=== PATIENT | male | born 1985 | race American Indian/Alaskan Native ===

== ENCOUNTER 2019-03-24 11:59 | Emergency (ER) | payer MEDICAID ==
[2019-03-24 12:29] VITALS: BP 128/78
--- NOTE | 2019-03-24 12:31 | Emergency Department Report ---
Chief Complaint: Medical Clearance Stated Complaint: NEED MEDS Time Seen by Provider: 03/24/19 12:25 - HPI History of Present Illness: pt states he needs a refill of his medications states his doctor is in [facility] haloperidol 50mg/ml vial, quantity 3 ML clonazepam 0.5 mg tab pt still has around 7 tablets of the clonazepam left states he does not have anymore haloperidol injections pt denies any SI/HI or hallucinations he denies any symptoms no tremors A&O x3 vitals are normal will give pt [facility] and other PCP options to follow up with pt also given list of community resources (+) marijuana occ drinker occ smoker MSE screening note: Focused history and physical exam performed. Due to findings the following was ordered: ED Disposition for MSE Clinical Impression: Medication refill Disposition: TO HOME OR SELFCARE Is pt being admited?: No Does the pt Need Aspirin: No Condition: Stable Instructions: Schizophrenia (ED) Additional Instructions: Please follow up with mental health or [facility]. Return to the emergency room if begin experiencing any symptoms. Referrals: [facility] - RAYMUNDO CASTANEDA MD [Primary Care Provider] - [facility] Time of Disposition: 12:49 Print Language: PALAUAN
== END 2019-03-24 12:57 | disposition home or self-care (01) ==
LOC: ED 11:59
DX: F20.9 Schizophrenia, unspecified (principal); Z76.0 Encounter for issue of repeat prescription; F17.200 Nicotine dependence, unspecified, uncomplicated; F12.10 Cannabis abuse, uncomplicated; Z88.5 Allergy status to narcotic agent
CPT/HCPCS: 99282

== ENCOUNTER 2019-11-01 20:02 | Emergency (ER) | payer MEDICAID ==
[2019-11-01 20:19] VITALS: BP 134/87
--- NOTE | 2019-11-01 20:30 | Emergency Department Report ---
Chief Complaint: Medical Clearance Stated Complaint: HEADACHE Time Seen by Provider: 11/01/19 20:25 - HPI History of Present Illness: states he is out of his medications states he takes clonezapam and prozac and Ambien states having difficulty sleeping and feels restless and that he constantly needs to be doing things no SI no HI no hallucinations No tangential speech A&Ox 3 no tremors on exam no diaphoresis initial vitals with mildly elevated HR which improved upon repeat No clinical signs or symptoms of withdrawal pt reports he is needing refills of his psych medications Will have patient follow-up with a psychiatrist or primary care doctor for manag ement of these psychiatric medications advised pt to please follow up with a primary care doctor and a psychiatrist. return to the emergency room for any new or worsening symptoms or if begin feeli ng thought of wanting to hurt yourself or others. medical screening exam performed there is no medical emergency at this time - Exam Vital Signs: Vital Signs 11/01/19 20:09 Temperature 99.3 F Pulse Rate 107 H Respiratory 18 Rate Blood Pressure 134/87 O2 Sat by Pulse 96 Oximetry MSE screening note: Focused history and physical exam performed. ED Disposition for MSE Clinical Impression: Encounter for medical screening examination Disposition: Z- MED SCREENING EXAM-LEFT Is pt being admited?: No Does the pt Need Aspirin: No Condition: Stable Additional Instructions: please follow up with a primary care doctor and a psychiatrist. return to the emergency room for any new or worsening symptoms or if begin feeling thought of wanting to hurt yourself or others. Referrals: [facility] [Outside] - 2-3 Days RAYMUNDO DOTY MD [Staff Physician] - 2-3 Days [facility] [Provider Group] - 2-3 Days [facility] [Outside] - 2-3 Days Time of Disposition: 20:27 Print Language: ARMENIAN
== END 2019-11-01 21:14 | disposition left against medical advice (07) ==
LOC: ED 20:02
DX: R51 Headache (principal); Z53.21 Procedure and treatment not carried out due to patient leaving prior to being seen by health care provider